=== PATIENT | male | born 1970 | race Caucasian/White ===

== ENCOUNTER 2021-01-19 19:03 | Emergency (ER) | payer MEDICARE ==
--- NOTE | 2021-01-19 19:22 | ED Physician Documentation ---
PD HPI ABD PAIN - Stated complaint Stated Complaint: ABD PX - Chief complaint Chief Complaint: Abd Pain - History obtained from History obtained from: Patient - Additional information Additional information: 39-year-old gentleman with history of prostatectomy and diverticulitis. Otherwise healthy. He had diverticulitis and was hospitalized for [address] [facility] about a month and a half ago. Given the length of hospitalization, presumed was complicated diverticulitis. He did not need surgery for. He subsequently had a follow-up CT in [place] where he lives, showing resolving diverticulitis at least per his description. He is scheduled for colonoscopy in a few weeks. Pain got suddenly worse a few hours ago with central abdominal pain that is an 8 out of 10 radiating to the left side. There is no associated nausea or vomiting. No fevers. He had did have diarrhea yesterday without blood that is better now. Review of Systems Ten Systems: 10 systems reviewed and negative Constitutional: reports: Reviewed and negative Eyes: reports: Reviewed and negative Ears: reports: Reviewed and negative Nose: reports: Reviewed and negative PD PAST MEDICAL HISTORY - Present Medications Home Medications: Ambulatory Orders Medication Instructions Recorded Confirmed Lisinopril [Zestril] 2.5 mg PO DAILY 01/19/21 01/19/21 oxyCODONE/ACET 5/325 [Percocet 5 5 - 325 mg pe PO PRN PRN 01/19/21 01/19/21 mg/325 mg] - Allergies Allergies/Adverse Reactions: Allergies Allergy/AdvReac Type Severity Reaction Status Date / Time No Known Drug Allergies Allergy Verified 01/19/21 19:08 PD ED PE NORMAL - Vitals Vital signs reviewed: Yes - General General: Alert and oriented X 3, Well developed/nourished - HEENT HEENT: PERRL, EOMI - Neck Neck: Supple, no meningeal sign, No bony TTP - Cardiac Cardiac: RRR, No murmur - Respiratory Respiratory: No respiratory distress, Clear bilaterally - Abdomen Abdomen: No organomegaly, Other (He has mild diffuse tenderness with moderate tenderness in the left lower quadrant but no surgical signs. He appears uncomfortable. Well-healed laparoscopy scars from prior prostatectomy.) - Back Back: No CVA TTP, No spinal TTP - Derm Derm: Normal color, Warm and dry - Extremities Extremities: No edema, No calf tenderness / cord - Neuro Neuro: Alert and oriented X 3, Normal speech Results - Vitals Vitals: Vital Signs - 24 hr 01/19/21 01/19/21 01/19/21 19:08 19:30 20:30 Temperature 36.6 C Heart Rate 95 87 68 Respiratory 18 Rate Blood Pressure 122/100 H 131/92 H 124/90 H O2 Saturation 100 97 100 01/19/21 21:35 Temperature Heart Rate Respiratory 16 Rate Blood Pressure O2 Saturation Oxygen O2 Source Room air - Labs Labs: Laboratory Tests 01/19/21 01/19/21 01/19/21 19:30 19:30 20:30 WBC 6.7 RBC 4.88 Hgb 14.6 Hct 43.4 MCV 88.9 MCH 29.9 MCHC 33.6 RDW 13.5 Plt Count 265 MPV 9.0 Neut # (Auto) 3.3 Lymph # (Auto) 2.8 Andrews # (Auto) 0.4 Eos # (Auto) 0.1 Baso # (Auto) 0.0 Absolute Nucleated RBC 0.00 Nucleated RBC % 0.0 Sodium 136 Potassium 3.5 Chloride 100 L Carbon Dioxide 25 Anion Gap 11.0 BUN 11 Creatinine 0.8 Estimated GFR (MDRD) 102 Glucose 110 H Calcium 9.5 Total Bilirubin 0.9 AST 17 ALT 18 Alkaline Phosphatase 59 Total Protein 7.9 Albumin 4.6 Globulin 3.3 Albumin/Globulin Ratio 1.4 Lipase 32 Urine Color YELLOW Urine Clarity CLEAR Urine pH 5.5 Ur Specific [place] 1.010 Urine Protein NEGATIVE Urine Glucose (UA) NEGATIVE Urine Ketones NEGATIVE Urine Occult Blood NEGATIVE Urine Nitrite NEGATIVE Urine Bilirubin NEGATIVE Urine Urobilinogen 0.2 (NORMAL) Ur Leukocyte Esterase NEGATIVE Ur Microscopic Review NOT INDICATED Urine Culture Comments NOT INDICATED PD MEDICAL DECISION MAKING - ED course ED course: This is a 50-year-old gentleman who was hospitalized a month and a half ago. He followed up in [place] for a follow-up CT. And per his description it sounds like there were some residual findings on that CT. He had severe abdominal pain today which was much better after single dose of IV narcotics. CT was done and my suspicion is that the findings are consistent with what was seen on the follow-up CT in [place] based on his description which is either a small residual fluid collection or fistula near the sigmoid colon. Given his normal white count and rapid response to pain medication as well as lack of other systemic symptoms I do not think restarting antibiotics is necessary at this juncture. 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 Departure - Departure Disposition: 01 Home, Self Care Clinical Impression: Diverticulitis of gastrointestinal tract Condition: Good Record reviewed to determine appropriate education?: Yes Instructions: ED Diverticulitis Comments: As discussed, you do have some residual findings of your prior episode of diverticulitis on the CT. If pain recurs significantly or if you develop fever please seek medical care for consideration of starting antibiotics, but at this point, I think it is fine to continue your dietary regimen and follow-up with your GI in [place], taking the copy of the CAT scan read and labs with you for discussion and comparison with priors.
[2021-01-19] MEDS ORDERED: IOVERSOL 320 100 ML VIAL IVP ONE ×2 (19:30→20:25)
[2021-01-19] MEDS ORDERED: HYDROmorphone 1 MG/ML CARPUJECT IVP STA (19:35)
[2021-01-19] MEDS ORDERED: ONDANSETRON 4 MG/2 ML VIAL IVP STA (19:35)
[2021-01-19 19:39] LABS: BASOPHILS % (AUTO) 0.6 %; EOSINOPHILS # (AUTO) 0.1 10^3/uL (0.0-0.7); EOSINOPHILS % (AUTO) 1.5 %; HCT - HEMATOCRIT 43.4 % (42.0-52.0); HGB - HEMOGLOBIN 14.6 g/dL (14.0-18.0); LYMPHOCYTES # (AUTO) 2.8 10^3/uL (1.5-3.5); LYMPHOCYTES % (AUTO) 41.3 %; MEAN CORPUSCULAR HEMOGLOBIN 29.9 pg (27.0-31.0); MEAN CORPUSCULAR HGB CONC 33.6 g/dL (32.0-36.0); MEAN CORPUSCULAR VOLUME 88.9 fL (80.0-94.0); MONOCYTES # (AUTO) 0.4 10^3/uL (0.0-1.0); MONOCYTES % (AUTO) 6.6 %; NEUTROPHILS # (AUTO) 3.3 10^3/uL (1.5-6.6); NEUTROPHILS % (AUTO) 49.9 %; PLT - PLATELET COUNT 265 10^3/uL (130-450); RED BLOOD COUNT 4.88 10^6/uL (4.70-6.10); RED CELL DISTRIBUTION WIDTH 13.5 % (12.0-15.0); WHITE BLOOD COUNT 6.7 x10^3/uL (4.8-10.8)
[2021-01-19 19:48] LABS: ALBUMIN 4.6 g/dL (3.2-5.5); ALBUMIN/GLOBULIN RATIO 1.4 (1.0-2.2); BILIRUBIN,TOTAL 0.9 mg/dL (0.2-1.0); CALCIUM 9.5 mg/dL (8.5-10.3); CREATININE 0.8 mg/dL (0.6-1.2); POTASSIUM 3.5 mmol/L (3.5-5.0); TOTAL PROTEIN 7.9 g/dL (6.7-8.2)
[2021-01-19 20:39] LABS: BILIRUBIN,URINE NEGATIVE (NEGATIVE); GLUCOSE, URINE (UA) NEGATIVE (NEGATIVE); KETONES,URINE (UA) NEGATIVE (NEGATIVE); LEUKOCYTE ESTERASE, URINE NEGATIVE (NEGATIVE); NITRITE,URINE NEGATIVE (NEGATIVE); OCCULT BLOOD,URINE NEGATIVE (NEGATIVE); PH,URINE 5.5 PH (5.0-7.5); PROTEIN,URINE NEGATIVE (NEGATIVE); UROBILINOGEN,URINE 0.2 (NORMAL) E.U./dL (NORMAL)
[2021-01-19 20:41] LABS: CLARITY,URINE CLEAR (CLEAR)
--- NOTE | 2021-01-19 21:34 | CT Report ---
PROCEDURE: Abdomen/Pelvis W INDICATIONS: IV only, LLq pain CONTRAST: IV CONTRAST: Optiray 320 ml: 100 PO CONTRAST: *NO PO CONTRAST TECHNIQUE: After the administration of intravenous contrast, 5 mm thick sections acquired from the diaphragms to the symphysis. 5 mm thick coronal and sagittal reformats were acquired. For radiation dose reducti on, the following was used: automated exposure control, adjustment of mA and/or kV according to janelle ent size. COMPARISON: None. FINDINGS: Image quality: Excellent. ABDOMEN: Lung bases: Lung bases are clear. Heart size is normal. Solid organs: Liver and spleen are normal in size and enhancement. Gallbladder is unremarkable. Bi liary system is non dilated. Pancreas enhances normally. No adrenal nodules. Kidneys demonstrate n ormal size and enhancement, without hydronephrosis. Left renal cyst is seen. Peritoneum and bowel: A 2.0 x 1.5 x 1.6 cm peripherally enhancing lesion is seen in the central lowe r abdomen adjacent to the sigmoid colon (image 57 of series 3). There appears to be a tract extending anteriorly towards the sigmoid colon, although the collection also abuts a small bowel loop. Multipl e diverticula are seen in the colon without acute pericolonic fat stranding or wall thickening. The a ppendix is normal. No signs of small bowel obstruction. Nodes and vessels: No retroperitoneal or mesenteric adenopathy by size criteria. Aorta and inferior vena cava are normal in size. Miscellaneous: No ventral hernias. PELVIS: Genitourinary: Bladder wall thickness is normal. Miscellaneous: No inguinal hernias or adenopathy. Bones: No suspicious bony lesions. No vertebral body compression fractures. IMPRESSION: 1.Small 2 cm peripherally enhancing collection within the peritoneum adjacent to the sigmoid colon is suspicious for possible abscess formation or fistula related to a prior episode of diverticulitis. N o pneumoperitoneum. Recommend clinical correlation and imaging follow-up to resolution. Oral or recta l contrast could be given to evaluate for a fistula if the collection persists. 2.Colonic diverticulosis without signs of active acute diverticulitis. Normal appendix. Reviewed by: Shubham Gonsalves MD on 01/19/2021 9:33 PM PST Approved by: Shubham Gonsalves MD on 01/19/2021 9:33 PM PST Station ID: [id number]
[2021-01-19 21:46] VITALS: BP 117/86
== END 2021-01-19 21:48 | disposition home or self-care (01) ==
LOC: ED 19:03
DX: K57.92 Diverticulitis of intestine, part unspecified, without perforation or abscess without bleeding (principal)
CPT/HCPCS: 36415; 74177; 80053; 81003; 83690; 85025; 96374; 99284; J1170; Q9967; 81001; 87086